=== PATIENT | male | born 1980 | race Hispanic/Latino ===

== ENCOUNTER 2018-11-28 01:01 | Inpatient (IN) | payer OTHER ==
[~2018-11-28] VITALS: Ht 188 cm; Wt 146.6 kg
[2018-11-28] VITALS (8 sets, daily range): BP systolic 105–125; BP diastolic 51–83
--- OUTSIDE RECORDS SUMMARY | 2018-11-28 01:03 | XMS REPORT | Continuity of Care Document ---
Author Author [facility] Organization Interface Address Unknown Phone Unavailable Problems Problem Status Onset Date Classification Date Reported Comments Source NECK ABSCESS Active 07/05/2018 [facility] ABSCESS OF EPIDIDYMIS OR TESTIS Active [facility] Medications Medication Details Route Status Patient Instructions Ordering Provider Order Date Source Allergies, Adverse Reactions, Alerts Substance Category Reaction Severity Reaction type Status Date Reported Comments Source Immunizations Immunization Date Given Site Status Last Updated Comments Source Results Order Name Results Value Reference Range Date Interpretation Comments Source Vital Signs Vital Sign Value Date Comments Source Encounters Location Location Details Encounter Type Encounter Number Reason For Visit Attending Provider ADM Date DC Date Status Source Outpatient [id number] YUDITH VALENZUELA 06/16/2017 Active [facility] Outpatient [id number] SAMMI RIOS 07/05/2018 Active [facility] Procedures Procedure Code Date Perfomer Comments Source
[2018-11-28] MEDS ORDERED: ONDANSETRON HCL INJ 2MG/ML 2ML 2 MG/ML VIAL IV STA (01:17)
[2018-11-28] MEDS ORDERED: MORPHINE SULFATE INJ 4 MG/ML INJ 1ML IV ONE (01:30)
[2018-11-28] MEDS ORDERED: SODIUM CHLORIDE 0.9% 1000ML 1,000 ML IV SCH ×3 (01:30→02:15)
[2018-11-28] MEDS ORDERED: CLINDAMYCIN PHOS 900MG/ 50ML 50 ML IV SCH (01:30)
[2018-11-28] MEDS ORDERED: ONDANSETRON HCL INJ 2MG/ML 2ML 2 MG/ML VIAL IV PRN ×2 (02:15→09:00)
[2018-11-28] MEDS ORDERED: MORPHINE SULFATE 2 MG/ML SYR 1ML IV PRN (02:15)
[2018-11-28] MEDS ORDERED: DEXTROSE 50% SYRINGE 50 ML IV PRN ×2 (02:15→09:00)
--- OUTSIDE RECORDS SUMMARY | 2018-11-28 02:22 | XMS REPORT | Encounter Summary ---
Author Organization Unknown Address [address] [place] [address] Phone [phone] Reason for Visit abscess/boil Instructions 1. Furunculosis of skin AND/OR subcutaneous tissue Bactrim DS 800 mg-160 mg tablet general surgery referral tramadol 50 mg tablet 2. Hypertensive disorder lisinopril 10 mg tablet 3. Type 2 diabetes mellitus metformin 1,000 mg tablet HbA1c (hemoglobin A1c), blood CMP, serum or plasma lipid panel, serum microalbumin:creatinine ratio, urine 4. Mixed hyperlipidemia 5. Body mass index 40+ - severely obese body mass index: care instructions learning about healthy weight Discussion Note: None recorded. Plan of Care Patient Instructions Prescriptions were sent to your pharmacy today, please call if any issues labs ordered today- results should be back within the the next 7 days- check the patient portal refer to surgeon Reminders Provider Appointments Est Patient on or around 02/25/2019 Deborah Reynolds MD Lab HbA1C (Hemoglobin a1C), Blood 11/25/2018 [facility] CMP, Serum or Plasma 11/25/2018 [facility] Lipid Panel, Serum 11/25/2018 [facility] Microalbumin:creatinine Ratio, Urine 11/25/2018 [facility] Referral General Surgery Referral 11/25/2018 Amilcar Kuhn MD Procedures None recorded. Surgeries None recorded. Imaging None recorded. Medications Name Start Date Bactrim DS 800 mg-160 mg tablet Take 1 tablet every 12 hours by oral route as directed for 10 days. Americoagldenia RussoPen U-100 Insulin 100 unit/mL (3 mL) subcutaneous ADMINISTER 40 UNITS UNDER THE SKIN TWICE DAILY DUE FOR APPT lisinopril 10 mg tablet Take 1 tablet every day by oral route. lisinopril 20 mg tablet Take 1 tablet every day by oral route. DUE FOR APPT 06/2018 metformin 1,000 mg tablet TAKE 1 TABLET BY MOUTH TWICE A DAY with food tramadol 50 mg tablet Take 1 tablet 3 times a day by oral route as needed. for severe pain Medications Administered None recorded. Vitals Height Weight BMI Blood Pressure 6 ft 2 in 130/84 mm[Hg] Lab Results None recorded. Allergies Code Code System Name Reaction Severity Status Onset NKDA Problems Name Status Onset Date Source Type 2 Diabetes Mellitus Active 12/15/2017 Hypertensive Disorder Active Procedures Date Name Performed by 09/08/2011 Circumcision W/regionl Block Information not available 09/08/1997 Other Information not available 09/08/1997 Hand Surgery Information not available Vaccine List Vaccine Type influenza, unspecified formulation 05/09/2015 Tdap 09/08/2011 Social History Smoking Status Never Smoker (1 PPW) Past Encounters 11/25/2018 Furunculosis of Skin AND/OR Subcutaneous Tissue; Hypertensive Disorder; Type 2 Diabetes Mellitus; Mixed Hyperlipidemia; Body Mass Index 40+ - Severely Obese Deborah Reynolds MD: [address] [place] [address], [address], [place] [address], Ph. History of Present Illness Note:37 yo male with HTN, hyperlipidemia and uncontrolled DM c/o boil in left buttock x 5 days , started draining a few days ago without improvement of pain, currently 10/10, steadily increasing size of affected area<div>(+) subjective fever/chills</div><div>DM- currently on basaglar 30 BID, also intermittently alternates with cambodian lantus</div><div> denies visual blurring, polydipsia/polyuria, hypoglycemic episodes, paresthesias, eye exam > 1 yr ago, </div><div>HTN- not taking any meds (previously on HOLLIE and diuretic)</div>< div>hyperlipidemia- not on statin</div> Review of Systems:ROS as noted in the HPI Review of Systems None recorded. Physical Exam Notes: General: well developed, well nourished, in no acute distress. obese , fatigued

Head: normocephalic and atraumatic.

Eyes: PERRL/EOM intact, conjunctiva and sclera clear with out nystagmus.

Ears: grossly normal hearing.

Nose: no deformity, discharge, inflammation, or lesions.

Mouth: no deformity or lesions with good dentition.

Neck: no masses, thyromegaly, or abnormal cervical nodes.

Chest Wall: no deformities or masses noted.

Lungs: clear bilaterally to auscultation. nonlabored respiratory effort, no wheeze, rales or rhonchi

Heart: chest non-tender; regular rate and rhythm, S1, S2 without murmurs, rubs, or gallops

Abdomen: soft, nontender, nondistended, no masses, no hernia, no rebound, normoactive bowel sounds

Msk: no deformity or scoliosis noted of thoracic or lumbar spine.

Pulses: pulses normal in all 4 extremities.

Extremities: no clubbing, cyanosis, edema, or deformity noted with normal full range of motion of all joints.

Neurologic: no focal deficits, cranial nerves II-XII grossly intact with normal sensation, reflexes, coordination, muscle strength and tone.

Skin: Right buttock near midline-- 7-8 cm area of induration, erythema, TTP, with central excoriation, no drainage, otherwise intact without lesions or rashes.

Lymph Nodes:no significant cervical, axillary or supraclavicular adenopathy.

Psych: alert and cooperative; normal mood and affect; normal attention span and concentration. No suicidal/homicidal ideations, no panic attacks
--- OUTSIDE RECORDS SUMMARY | 2018-11-28 02:22 | XMS REPORT ---
Author Organization Unknown Address [address] [place] [address] Phone [phone] Care Team Providers Care Tool And Production Planner Name Role Phone Maximiliano Beltre Unavailable Unavailable Allergies Code Code System Name Reaction Severity Status Onset NKDA Medications Name Status Start Date Stop Date atorvastatin 40 mg tablet Take 1 tablet every day by oral route as directed for 90 days. Completed 09/22/2017 Bactrim DS 800 mg-160 mg tablet Take 1 tablet every 12 hours by oral route as directed for 10 days. Completed 12/09/2017 ceftriaxone 1 gram solution for injection Take 1 g by injection route. Completed 12/09/2017 glipizide 5 mg tablet Take 1 tablet twice a day by oral route as directed for 30 days. Completed 12/09/2017 hydrochlorothiazide 25 mg tablet Take 1 tablet every day by oral route as directed for 90 days. Completed 12/09/2017 Jardiance 25 mg tablet Take 1 tablet every day by oral route as directed for 30 days. Completed 09/22/2017 Keflex 500 mg capsule Take 1 capsule every 8 hours by oral route as directed for 10 days. Completed 12/09/2017 ketorolac 60 mg/2 mL intramuscular solution Inject 2 mL as needed by intramuscular route. Completed 12/09/2017 Lantus Solostar U-100 Insulin 100 unit/mL (3 mL) subcutaneous pen Inject 25 units twice a day by subcutaneous route. Active Not available lisinopril 20 mg tablet Take 1 tablet every day by oral route. Active Not available metformin 1,000 mg tablet Take 1 tablet twice a day by oral route. Active Not available Problems Name Status Onset Date Source Type 1 Diabetes Mellitus Unknown Hypertensive Disorder Active Procedures Date Name Performed by 09/08/2011 Circumcision W/regionl Block Information not available 09/08/1997 Other Information not available 09/08/1997 Hand Surgery Notes: right Information not available 09/18/2017 , [facility] [address] [place] [address] (Work Place) 12/09/2017 CT, Brain, W/o Contrast [facility] ([facility]) [address] [facility] [address] [place] [address] (Work Place) Lab Results Date Name Specimen Result Interpretation Description Value Range Status Address 09/11/2017 CMP, Serum or Plasma High Alt 76 U/L 0-55 U/L Final [facility]: [address] [place] [address], [place] High Ast 45 U/L 5-34 U/L Final [facility]: [address] Bun 14.4 mg/dL 8.9-20.6 mg/dL Final [facility]: [address] Alk Phos 67 unit/L 40-150 unit/L Final [facility]: [address] High Glucose 322 mg/dL 70-99 mg/dL Final [facility]: [address] Albumin 3.9 g/dL 3.5-5.0 g/dL Final [facility]: [address] Creatinine 0.82 mg/dL 0.72-1.25 mg/dL Final [facility]: [address] eGFR Non- >60 mL/min/1.73m2 >60 mL/min/1.73m2 Final [facility]: [address] Total Bilirubin 1.2 mg/dL 0.2-1.2 mg/dL Final [facility]: [address] eGFR - >60 mL/min/1.73m2 >60 mL/min/1.73m2 Final [facility]: [address] Sodium 137 mEq/L 136-145 mEq/L Final [facility]: [address] Potassium 4.9 mEq/L 3.5-5.1 mEq/L Final [facility]: [address] Chloride 99 mmol/L 98-107 mmol/L Final [facility]: [address] High Total Protein 8.5 g/dL 6.4-8.3 g/dL Final [facility]: [address] Calcium 9.7 mg/dL 8.4-10.2 mg/dL Final [facility]: [address] Co2 26.4 mmol/L 22.0-29.0 mmol/L Final [facility]: [address] Anion Gap 12 calc Final [facility]: [address] 09/11/2017 Lipid Panel, Serum Low Hdl 30 mg/dL 40-60 mg/dL Final [facility]: [address] High Triglyceride 618 mg/dL 0-149 mg/dL Final [facility]: [address] VLDL Calc. 124 mg/dL Final [facility]: [address] cholesterol/HDL Ratio 7.0 mg/dL Final [facility]: [address] High non-HDL Cholesterol Calc. 180 mg/dL 0-160 mg/dL Final [facility]: [address] High Cholesterol 210 mg/dL 0-199 mg/dL Final [facility]: [address] Low LDL Calc. see comment mg/dL 0-130 mg/dL Final [facility]: [address] 09/11/2017 HbA1C (Hemoglobin a1C), Blood High A1C W/eag 10.8 % 1.0- 5.7 % Final [facility]: [address] Average Blood Glucose 263 mg/dL Final [facility]: [address] [address], [place] Albumin:creatinine Ratio, Urine Type Urine Microlalbumin 150 mg/L [facility]: [address] [place] [address] Type Urine Creatinine 200 mg/dL [facility] Type A:C Ratio >300 mg/g (High Abnormal) [facility] [address] [facility] Past Encounters 12/09/2017 Concussion Injury of Brain; Injury of Head; Hypertensive Disorder; Type II Diabetes Mellitus Uncontrolled; Body Mass Index 40+ - Severely Obese Deborah Reynolds MD: [address], [address] [address], Ph. 09/22/2017 Abscess; Type II Diabetes Mellitus Uncontrolled Maximiliano Kennedy MD: [address] [place] [address], Ph. 09/19/2017 Abscess; Mixed Hyperlipidemia Maximiliano Kennedy MD: [address] [facility], [address] [address], Ph. 09/18/2017 Type II Diabetes Mellitus Uncontrolled; Mixed Hyperlipidemia; Benign Essential Hypertension; Abscess; Elevated Liver Enzymes Level Maximiliano Kennedy MD: [address] [place] [address], Ph. 09/11/2017 Type 1 Diabetes Mellitus; Hypertensive Disorder; Electrocardiogram Abnormal; Microalbuminuria; Body Mass Index 40+ - Severely Obese Maximilianorebecca Kennedy MD: [address] [place] [address], Ph. Social History Smoking Status Former Smoker (1 PPW) Vaccine List Vaccine Type influenza, unspecified formulation 05/09/2015 Tdap 09/08/2011 Plan of Care Patient Instructions do CT head check labs tylenol 650mg 4x daily /motrin 600 3x daily with food for pain avoid contact sports x 4 wks Reminders Provider Appointments None recorded. Lab None recorded. Referral None recorded. Procedures None recorded. Surgeries None recorded. Imaging None recorded. Vitals 12/09/2017 01:30PM Est Patient Height Weight BMI Blood Pressure 6 ft 2 in 324 lbs 41.6 kg/m2 132/77 mm[Hg] 09/22/2017 10:30AM Est Patient Height Weight BMI Blood Pressure 6 ft 2 in 324 lbs 41.6 kg/m2 (1) 140/90 mm[Hg] (2) 132/96 mm[Hg] 09/19/2017 10:45AM Work In Same Day Height Weight BMI Blood Pressure 6 ft 2 in 325 lbs 41.7 kg/m2 (1) 159/109 mm[Hg] (2) 154/106 mm[Hg] 09/18/2017 11:15AM Est Patient Height Weight BMI Blood Pressure 6 ft 2 in 323 lbs 41.5 kg/m2 (1) 150/106 mm[Hg] (2) 140/96 mm[Hg] 09/11/2017 03:00PM New Patient Height Weight BMI Blood Pressure 6 ft 2 in 324 lbs 41.6 kg/m2 140/84 mm[Hg]
--- NOTE | 2018-11-28 02:53 | Diagnostic Imaging Report ---
EXAMINATION: CT of the pelvis with contrast. TECHNIQUE: Spiral CT images of the pelvis were performed from the iliac crests to the lesser trochanters after the intravenous administration of 100 cc of Isovue 370 and the oral administration of water. Coronal and sagittal reformatted images were obtained. COMPARISON: None. CLINICAL HISTORY:Abscess/boil in buttock DISCUSSION: PELVIS: PELVIC ORGANS/BLADDER: Bladder is unremarkable. No focal lesions. Prostate is unremarkable. PERITONEUM/RETROPERITONEUM: No free air or fluid. LYMPH NODES: Mild enlarged left inguinal lymph node, which measures 1.9 cm in short axis (series 2, image 73). No other inguinal or any distal retroperitoneal, or pelvic adenopathy VESSELS: Vessels are unremarkable. GI TRACT: The visualized bowel shows no dilation or obstruction. Appendix is well identified and normal in caliber. BONES AND SOFT TISSUE: No aggressive lytic lesions. There is an approximately 10.7 x 6.4 x 4.9 cm fluid and air collection with peripheral enhancement extending from the subcutaneous tissues of the left ischioanal fossa inferiorly to the left gluteal cleft (series 2, image 77 and sagittal image 78). The anterior aspect of this collection abuts the posterior aspect of the anal canal. Surrounding inflammatory fat stranding as well as skin thickening in the left gluteal cleft is noted. There is an additional 2.5 x 0.8 cm hypodense collection with rim enhancement and associated skin thickening and surrounding inflammatory changes in the subcutaneous tissues of the medial aspect of the right thigh (series 2, image 102). A focal area of skin thickening, subcutaneous inflammatory changes with several foci of air are noted in the opposite medial aspect of the left thigh (series 2, image 97), although no definite fluid collection is noted. Bilateral fat-containing inguinal hernias. IMPRESSION: 1. 10.7 cm abscess extending from the subcutaneous soft tissues of the inferior aspect of the left ischioanal fossa inferiorly to the left gluteal cleft. The anterior aspect of this collection abuts the posterior aspect of the renal canal. A fistulous tract is not visualized, however, may be the source of this infection. This may be further evaluated with dedicated contrast enhanced pelvic MRI with fistula protocol 2. Additional 2.5 cm abscess in the subcutaneous tissues of the medial aspect of the right thigh. Phlegmonous changes and skin thickening are noted in the opposite medial aspect of the left thigh, without discrete fluid collections. 3. Mildly enlarged left inguinal lymph node, likely reactive. Signed by: Dr. Eliel Lance M.D. on 11/28/2018 2:50 AM
[2018-11-28] MEDS: VANCOMYCIN 1GM/NS 250 ML 250 ML IV SCH (03:01)
[2018-11-28] MEDS ORDERED: LANTUS 3ML100 UNITS/ SC (04:47)
[2018-11-28] MEDS ORDERED: METFORMIN HCL500 MG PO (04:47)
[2018-11-28] MEDS ORDERED: LISINOPRIL10 MG PO (04:47)
[2018-11-28] MEDS: PIPER-TAZ 3.375 GM 50 ML IV SCH ×3 (06:00→18:03)
--- NOTE | 2018-11-28 07:10 | NUR ---
REPORT GIVEN TO ONCOMING NURSE.PT RESTING IN BED WITH NO S/S OF DISTRESS.
[2018-11-28] MEDS ORDERED: INSULIN REGULAR, HUMAN 100 UNIT/1 ML 3ML VIAL SQ SCH (07:30)
[2018-11-28] MEDS ORDERED: ACETAMINOPHEN 325 MG TAB PO PRN ×2 (09:00→11:00)
[2018-11-28] MEDS ORDERED: INSULIN GLARGINE U SC SCH (09:00)
[2018-11-28] MEDS: INSULIN GLARGINE 100 UNITS/ML VIAL SQ SCH ×2 (09:00→17:41)
[2018-11-28] MEDS ORDERED: HYDRALAZINE HCL 20 MG/ML VIAL IV PRN (09:00)
[2018-11-28] MEDS ORDERED: MORPHINE SULFATE INJ 4 MG/ML INJ 1ML IV PRN (09:15)
[2018-11-28 09:16] LABS: BASOPHILS # (AUTO) 0.1 (0.0-0.1); BASOPHILS % 0.3 % (0.0-1.0); EOSINOPHILS # (AUTO) 0.1 (0.0-0.4); EOSINOPHILS % 0.6 % (0.0-6.0); HEMATOCRIT 41.5 % (38.2-49.6); HEMOGLOBIN 13.9 g/dL (14.0-18.0); LYMPHOCYTES # (AUTO) 2.9 (1.0-3.2); LYMPHOCYTES % 16.5 % (18.0-39.1); MEAN CORPUSCULAR HEMOGLOBIN 26.9 pg (28-32); MEAN CORPUSCULAR HGB CONC 33.5 g/dL (31-35); MEAN CORPUSCULAR VOLUME 80.3 fL (81-99); MONOCYTES # (AUTO) 1.2 (0.2-0.8); MONOCYTES % 7.1 % (4.4-11.3); NEUTROPHILS # (AUTO) 12.9 (2.1-6.9); NEUTROPHILS % 74.6 % (38.7-80.0); PLATELET COUNT 334 x10e3/uL (140-360); RED BLOOD COUNT 5.17 x10e6/uL (4.3-5.7); RED CELL DISTRIBUTION WIDTH 13.2 % (11.7-14.4)
[2018-11-28 09:24] LABS: ANION GAP 15.5 mmol/L (8-16); BLOOD UREA NITROGEN 9 mg/dL (7-26); BUN/CREATININE RATIO 13 (6-25); CALCIUM 8.8 mg/dL (8.4-10.2); CARBON DIOXIDE 18 mmol/L (22-29); CHLORIDE 103 mmol/L (98-107); CREATININE, SERUM 0.69 mg/dL (0.72-1.25); EST GLOMERULAR FILTRATION RATE > 60 ML/MIN (60-); GLUCOSE 116 mg/dL (74-118); POTASSIUM 3.5 mmol/L (3.5-5.1); SODIUM 133 mmol/L (136-145)
[2018-11-28] MEDS: PANTOPRAZOLE 40 MG 10ML VIAL IV SCH (09:28)
[2018-11-28 09:46] LABS: FREE T4 (FREE THYROXINE) 1.09 ng/dL (0.9-1.8); THYROID STIMULATING HORMONE 2.964 uIU/mL (0.350-4.940)
[2018-11-28 09:48] LABS: B-TYPE NATRIURETIC PEPTIDE2 256.3 pg/mL (0-100)
[2018-11-28 09:58] LABS: MAGNESIUM 1.2 MG/DL (1.3-2.1)
--- NOTE | 2018-11-28 10:22 | NUR ---
Patient off unit to OR.
[2018-11-28] MEDS ORDERED: HYDROMORPHONE 1MG/1ML INJ IV PRN (11:00)
[2018-11-28] MEDS: INSULIN LISPRO 100 UNIT/1 ML 3ML VIAL SQ SCH ×3 (11:30→21:00)
--- NOTE | 2018-11-28 12:37 | Consultation ---
DATE OF CONSULTATION: 11/28/2018 Consultation HISTORY OF PRESENT ILLNESS: The patient is a 37-year-old male with history of diabetes, presents with complaints of pain and swelling in his left buttock area, he has had for little more than a week. It is small and gradually increased in size. Now, he has drainage, also some pain in the right thigh. Evaluation of CT scan of the pelvis revealed abscess in the left buttock and a small abscess in the right thigh. The patient has not had any fever. PAST MEDICAL HISTORY: Significant for hypertension and diabetes. MEDICATIONS: His medications at home are insulin, lisinopril, and metformin. PAST SURGICAL HISTORY: Only previous surgery was for injury to his arm. ALLERGIES: HE HAS NO KNOWN ALLERGIES. FAMILY HISTORY: Noncontributory. SOCIAL HISTORY: The patient does not smoke cigarettes or drink alcohol. REVIEW OF SYSTEMS: As stated above. He has not had any fever. No weight loss. PHYSICAL EXAMINATION: GENERAL: The patient is awake and alert, in no distress. VITAL SIGNS: Slight tachycardia, heart rate 109. He is afebrile. HEENT: No scleral icterus. NECK: Has no masses. LUNGS: Equal breath sounds and clear bilaterally. CARDIAC: Regular rate and rhythm. Normal S1 and S2 without murmur, S3, or S4. ABDOMEN: Soft. There is no tenderness. No mass. EXTREMITIES: In the left buttock area, there is induration and erythema with open area of purulent drainage and in the right medial thigh, there is a second area with induration with a small amount of purulent drainage. Peripheral pulses are palpable. NEUROLOGIC: Grossly intact. LAB TESTS: White blood cell count is 19,000, hemoglobin 15, and hematocrit 44. Chemistries, bicarbonate level is low at 18. ASSESSMENT: A 37-year-old male with abscess of left buttock and right thigh. PLAN: Incision and drainage of the abscess to be done today. Procedure was explained to the patient including risks, benefits, and alternatives. He understands. He has had the opportunity to ask questions. Thank you for asking me to see Mr. Baker. MD AUDREY Padilla/TALIA /[id number]
--- NOTE | 2018-11-28 14:00 | NUR ---
Patient up and ambulating to bathroom and back without any complaints. Post op dressing intact. Patient requesting diet to be changed to clear liquids. call morrissey within reach.
[2018-11-28] MEDS: SODIUM CHLORIDE 0.9% 1000ML 1,000 ML IV SCH ×3 (14:33→22:15)
[2018-11-28] MEDS ORDERED: FENTANYL CITRATE/PF 100MCG/2 ML INJ ONE (15:23)
[2018-11-28] MEDS ORDERED: LIDOCAINE HCL 2% LOCAL INJ 5 ML SDV VIAL INJ ONE (15:47)
[2018-11-28] MEDS ORDERED: ACETAMINOPHEN 1000 MG/100 ML IV ONE (15:47)
[2018-11-28] MEDS ORDERED: DESFLURANE 240 ML BTL INH ONE (15:47)
[2018-11-28] MEDS ORDERED: ONDANSETRON HCL INJ 2MG/ML 2ML 2 MG/ML VIAL ONE (15:47)
[2018-11-28] MEDS ORDERED: PROPOFOL IV EMULSION 10 MG/ML 20 ML VIAL ONE (15:47)
[2018-11-28] MEDS: FAMOTIDINE 20 MG TAB PO SCH (16:30)
[2018-11-28] MEDS: DOCUSATE SODIUM 100 MG CAP PO SCH (17:39)
[2018-11-28] MEDS: HYDROCODONE/APAP 7.5MG-325MG 1 EA TAB PO PRN (18:04)
--- NOTE | 2018-11-28 18:18 | Operative Report ---
DATE OF PROCEDURE: 11/28/2018 SURGEON: Dawson Navarro MD PREOPERATIVE DIAGNOSES: 1. Abscess of left buttock. 2. Abscess of right medial thigh. POSTOPERATIVE DIAGNOSES: 1. Complex abscess of left buttock. 2. Abscess of right medial thigh. PROCEDURES: 1. Incision and drainage of complex abscess, left buttock. 2. Incision and drainage of abscess, right medial thigh. COMPUTER GAME PROGRAMMER: None. ANESTHESIA: General. INDICATIONS AND FINDINGS: The patient is a 37-year-old male with history of diabetes, presented with swelling in the left buttock and right medial thigh and there was drainage noted. Workup revealed abscesses in each area. Surgery, there was a large abscess in the left buttock containing approximately 40 mL of purulent fluid. This tracks superior and inferior a large cavity. There is some devitalized skin and subcutaneous tissue, which was excised. In the right medial thigh, there was a second abscess containing approximately 3 mL of purulent fluid, which was drained with no necrotic tissue seen. TECHNIQUE: After adequate general anesthesia with the patient in right side down position, the left buttock and right medial thigh were prepped and draped in a sterile fashion with Betadine solution. There was some devitalized skin where there was purulent drainage in the left buttock. This was excised and abscess cavity was entered. About 40 mL of purulent fluid was drained. Sample taken for culture and sensitivity, this was somewhat hemorrhagic. There was some devitalized skin which was excised as well as subcutaneous tissue which was excised. Hemostasis achieved with electrocautery. The wound was irrigated with saline. In the medial thigh, there was a sinus tract with purulent drainage. Incision was made through this area and abscess cavity was entered. About 3 mL of purulent fluid was drained and this was drained completely. Hemostasis achieved with electrocautery. Each abscess cavity was irrigated with saline. The thigh abscess was dressed with packed open half-inch iodoform gauze and sterile dressing and the left buttock abscess was packed with saline moistened Kerlix and a sterile dressing applied. The patient tolerated the entire procedure well. Estimated blood loss was 40 mL. There were no complications. All counts were correct. The patient was taken to the recovery room in satisfactory condition. MD AUDREY Padilla/ELLAL /[id number] cc: Tom Abdalla MD
[2018-11-28] MEDS ORDERED: LISINOPRIL 10 MG TAB PO SCH (21:00)
[2018-11-28] MEDS: LISINOPRIL 20 MG TAB PO SCH (21:58)
[2018-11-29] VITALS (7 sets, daily range): BP systolic 117–134; BP diastolic 65–87
[2018-11-29] MEDS: VANCOMYCIN 1GM/NS 250 ML 250 ML IV SCH (02:35)
[2018-11-29] MEDS: ONDANSETRON HCL INJ 2MG/ML 2ML 2 MG/ML VIAL IV PRN ×2 (03:07→09:50)
[2018-11-29 03:26] LABS: BASOPHILS # (AUTO) 0.1 (0.0-0.1); BASOPHILS % 0.5 % (0.0-1.0); EOSINOPHILS # (AUTO) 0.2 (0.0-0.4); EOSINOPHILS % 1.6 % (0.0-6.0); HEMATOCRIT 37.5 % (38.2-49.6); HEMOGLOBIN 12.4 g/dL (14.0-18.0); LYMPHOCYTES % 27.5 % (18.0-39.1); MEAN CORPUSCULAR HGB CONC 33.1 g/dL (31-35); MEAN CORPUSCULAR VOLUME 81.7 fL (81-99); MONOCYTES # (AUTO) 0.9 (0.2-0.8); MONOCYTES % 8.4 % (4.4-11.3); NEUTROPHILS # (AUTO) 6.6 (2.1-6.9); NEUTROPHILS % 60.4 % (38.7-80.0); PLATELET COUNT 317 x10e3/uL (140-360); RED BLOOD COUNT 4.59 x10e6/uL (4.3-5.7); RED CELL DISTRIBUTION WIDTH 13.2 % (11.7-14.4)
[2018-11-29 03:35] LABS: INR 1.01; PROTHROMBIN TIME 13.8 seconds (11.9-14.5)
[2018-11-29 03:36] LABS: PARTIAL THROMBOPLASTIN TIME 43.9 seconds (23.8-35.5)
[2018-11-29 03:41] LABS: ANION GAP 12.5 mmol/L (8-16); BLOOD UREA NITROGEN 7 mg/dL (7-26); BUN/CREATININE RATIO 10 (6-25); CALCIUM 8.4 mg/dL (8.4-10.2); CARBON DIOXIDE 21 mmol/L (22-29); CHLORIDE 106 mmol/L (98-107); CREATININE, SERUM 0.72 mg/dL (0.72-1.25); EST GLOMERULAR FILTRATION RATE > 60 ML/MIN (60-); GLUCOSE 145 mg/dL (74-118); MAGNESIUM 1.2 MG/DL (1.3-2.1); POTASSIUM 3.5 mmol/L (3.5-5.1); SODIUM 136 mmol/L (136-145)
[2018-11-29] MEDS: PIPER-TAZ 3.375 GM 50 ML IV SCH ×2 (06:00)
[2018-11-29] MEDS: SODIUM CHLORIDE 0.9% 1000ML 1,000 ML IV SCH ×2 (06:18→17:39)
--- NOTE | 2018-11-29 07:21 | NUR ---
REPORT GIVEN TO ONCOMING NURSE.PT RESTING IN BED WITH NO S/S OF DISTRESS.
[2018-11-29] MEDS: INSULIN LISPRO 100 UNIT/1 ML 3ML VIAL SQ SCH ×4 (07:30→21:00)
[2018-11-29] MEDS ORDERED: MAGNESIUM SULF 1GRAM/DEXTROSE 100 ML IV ONE ×2 (07:45→12:00)
[2018-11-29] MEDS: FAMOTIDINE 20 MG TAB PO SCH ×2 (09:45→17:37)
[2018-11-29] MEDS: PANTOPRAZOLE 40 MG 10ML VIAL IV SCH (09:46)
[2018-11-29] MEDS: DOCUSATE SODIUM 100 MG CAP PO SCH ×2 (09:46→17:39)
[2018-11-29] MEDS: HYDROMORPHONE 2MG/ML 2 MG/ML ML IV PRN (09:49)
[2018-11-29] MEDS: INSULIN GLARGINE 100 UNITS/ML VIAL SQ SCH ×2 (09:49→17:40)
[2018-11-29] MEDS: CIPROFLOXACIN 400 MG/D5W 200ML 200 ML IV SCH (13:15)
--- NOTE | 2018-11-29 18:38 | Consultation ---
DATE OF CONSULTATION: Infectious Disease Consult Note This consultation was done on behalf of Dr. Finn. REASON FOR CONSULTATION: Left gluteal abscess status post I and D, evaluation, and antibiotic recommendation, reason for admission and fever, uncontrolled blood sugars and left gluteal boil. HISTORY OF PRESENT ILLNESS: The patient is a 37-year-old very pleasant gentleman with past medical history significant for type 2 diabetes mellitus, hypertension and obesity, presented to [facility] on 11/28/2018 with one week history of left gluteal area boil, fever, chills, and uncontrolled blood sugars. The patient reports he noticed a small pustule, which has gradually increased in size and he also had some area of small abscess in the right thigh as well. He underwent CT of the abdomen and pelvis, which showed abscess in the left gluteal and some abscess in the right thigh. The patient was seen by general surgeon and underwent incision and drainage yesterday. He has been getting vancomycin and Zosyn. Infectious Disease consulted today. At the time of my consultation, the patient is lying in bed, reports the pain is 5/10, throbbing in nature, worsening on lying on his gluteal area. PAST MEDICAL HISTORY: Recurrent boils, diabetes mellitus type 2, and hypertension. PAST SURGICAL HISTORY: Injury to his arm surgery. ALLERGIES: NO KNOWN DRUG ALLERGIES. MEDICATIONS: The patient was not taking any oral or IV antibiotics as an outpatient. As an inpatient, on vancomycin and Zosyn for last 48 hours. SOCIAL HISTORY: The patient has no tobacco or alcohol use. FAMILY HISTORY: Noncontributory. REVIEW OF SYSTEMS: A 10-point review of systems obtained except as mentioned in HPI, rest of them are negative. PHYSICAL EXAMINATION: GENERAL: The patient is well built, well nourished, moderately obese, very pleasant young gentleman. VITAL SIGNS: T-max of 96.3, heart rate 94, respiratory rate 20, blood pressure 110/60. HEENT: Head, atraumatic and normocephalic. Face is symmetrical. Conjunctiva is nonicteric. LUNGS: Clear to auscultation. Chest wall, multiple tattoos. ABDOMEN: Good bowel sounds. Left gluteal area, surgical dressing in place, packed with guaze and minimal amount of drainage is noted. LABORATORY DATA: WBC of 17,000 on admission, decreased to 10,000 today. Hemoglobin 12.4, hematocrit 37, and platelets of 317. Sodium 136, potassium 2.5, chloride 106, bicarb 21, BUN of 7, creatinine of 0.7. Hemoglobin A1c is 10.6. Preliminary wound cultures are showing rare gram-negative bacilli, moderate gram-positive cocci in pairs. ASSESSMENT AND PLAN: A 37-year-old very pleasant gentleman with diabetes mellitus type 2 and obesity, admitted to [facility] with left gluteal abscess, fever, leukocytosis, underwent incision and drainage. Most common pathogen is Staph aureus, cannot rule out MRSA, MSSA as well as group B beta-hemolytic Streptococcus. Recommend to discontinue Zosyn, continue vancomycin 2 g IV q.12 hours. Start Cipro 400 IV q.12 hours for gram negative coverage empirically. Follow culture results. Based on it, we will change antibiotics accordingly. MD ESTEPHANIA Ortiz/TALIA /[id number]
[2018-11-29] MEDS ORDERED: VANCOMYCIN HCL 2 GM in SODIUM CHLORIDE 0.9% 500ML 400 ML IV SCH (21:00)
[2018-11-29] MEDS: LISINOPRIL 20 MG TAB PO SCH (22:39)
[2018-11-29] MEDS ORDERED: SODIUM CHLORIDE 0.9% 500ML 0 ML ONE (22:46)
[2018-11-29] MEDS ORDERED: VANCOMYCIN 1GM/NS 250 ML 500 ML ONE (22:48)
[2018-11-30] VITALS (8 sets, daily range): BP systolic 119–142; BP diastolic 73–94
--- NOTE | 2018-11-30 00:20 | NUR ---
Patient received lying in bed. No complaints of pain. Respirations even and unlabored. Fall precautions implemented. Patient instructed to call for assistance when needed. Call light within reach.
[2018-11-30] MEDS: CIPROFLOXACIN 400 MG/D5W 200ML 200 ML IV SCH ×2 (01:00→12:47)
[2018-11-30] MEDS: SODIUM CHLORIDE 0.9% 1000ML 1,000 ML IV SCH ×2 (02:56→08:35)
[2018-11-30 06:10] LABS: BASOPHILS # (AUTO) 0.1 (0.0-0.1); BASOPHILS % 0.6 % (0.0-1.0); EOSINOPHILS # (AUTO) 0.2 (0.0-0.4); EOSINOPHILS % 1.8 % (0.0-6.0); HEMATOCRIT 40.3 % (38.2-49.6); HEMOGLOBIN 12.9 g/dL (14.0-18.0); LYMPHOCYTES # (AUTO) 2.8 (1.0-3.2); LYMPHOCYTES % 27.7 % (18.0-39.1); MEAN CORPUSCULAR HEMOGLOBIN 26.8 pg (28-32); MEAN CORPUSCULAR VOLUME 83.6 fL (81-99); MONOCYTES # (AUTO) 0.8 (0.2-0.8); MONOCYTES % 8.1 % (4.4-11.3); NEUTROPHILS % 59.6 % (38.7-80.0); PLATELET COUNT 329 x10e3/uL (140-360); RED BLOOD COUNT 4.82 x10e6/uL (4.3-5.7); RED CELL DISTRIBUTION WIDTH 13.2 % (11.7-14.4)
[2018-11-30 06:52] LABS: ANION GAP 10.5 mmol/L (8-16); BLOOD UREA NITROGEN 5 mg/dL (7-26); BUN/CREATININE RATIO 8 (6-25); CALCIUM 8.2 mg/dL (8.4-10.2); CARBON DIOXIDE 26 mmol/L (22-29); CHLORIDE 104 mmol/L (98-107); CREATININE, SERUM 0.64 mg/dL (0.72-1.25); EST GLOMERULAR FILTRATION RATE > 60 ML/MIN (60-); GLUCOSE 158 mg/dL (74-118); MAGNESIUM 1.3 MG/DL (1.3-2.1); POTASSIUM 3.5 mmol/L (3.5-5.1); SODIUM 137 mmol/L (136-145)
[2018-11-30 07:56] LABS: EOSINOPHILS % (MANUAL) 1 % (0-7); LYMPHOCYTES % (MANUAL) 36 % (19-48); MONOCYTES % (MANUAL) 5 % (3.4-9.0); NEUTROPHILS % (MANUAL) 56 % (40-74)
[2018-11-30 07:59] LABS: PLATELET ESTIMATE ADEQUATE; PLATELET MORPHOLOGY COMMENT NORMAL; RBC MORPHOLOGY COMMENT NORMAL
[2018-11-30] MEDS: PANTOPRAZOLE 40 MG 10ML VIAL IV SCH (08:35)
[2018-11-30] MEDS: ONDANSETRON HCL INJ 2MG/ML 2ML 2 MG/ML VIAL IV PRN (08:35)
[2018-11-30] MEDS: FAMOTIDINE 20 MG TAB PO SCH ×2 (08:35→17:11)
[2018-11-30] MEDS: DOCUSATE SODIUM 100 MG CAP PO SCH ×2 (08:35→17:12)
[2018-11-30] MEDS: HYDROMORPHONE 2MG/ML 2 MG/ML ML IV PRN (08:35)
[2018-11-30] MEDS: INSULIN LISPRO 100 UNIT/1 ML 3ML VIAL SQ SCH ×4 (08:50→21:38)
[2018-11-30] MEDS ORDERED: FUROSEMIDE INJ 10 MG/ML 4 ML VIAL IV ONE (09:30)
[2018-11-30] MEDS: INSULIN GLARGINE 100 UNITS/ML VIAL SQ SCH ×2 (10:00→17:56)
--- NOTE | 2018-11-30 10:23 | NUR ---
WOUND CARE NURSE CONSULTATION. 37 YEAR OLD MALE ADMITTED TO [facility] WITH DX OF CELLULITIS AND ABSCESS TO RIGHT BUTTOCK AND RIGHT MEDIAL THIGH. S/P 2 DAYS I&D PER DR. FITZPATRICK. SURGICAL DRESSING DRY AND INTACT. THERE ARE NO OTHER AREAS OF CONCERN NOTED AT THIS TIME. ORDERS TO REINFORCE DRESSING PRN IN CHART. WILL CONTINUE TO FOLLOW UP WITH PT AFTER SURGICAL DRESSING IS REMOVED BY MD. LABS: WBC: 10.12 GLUCOSE: 153 HGBA1C: 10.6 WOUND AND BLOOD CX PENDING AT THIS TIME. THANKS FOR THIS CONSULTATION. Addendum: 11/30/18 at 1028 by Joya Richardson RN Amended: Links added.
[2018-11-30] MEDS: VANCOMYCIN HCL 2 GM in SODIUM CHLORIDE 0.9% 500ML 500 ML IV SCH ×2 (11:21→20:38)
[2018-11-30] MEDS: MAGNESIUM OXIDE 400 MG TAB PO SCH (17:12)
[2018-11-30] MEDS: ZINC SULFATE 220 MG CAP PO SCH (17:12)
[2018-11-30] MEDS: ASCORBIC ACID 500 MG TAB PO SCH (17:12)
[2018-11-30] MEDS: OYST-CAL-D 500MG TABLET PO SCH (17:12)
[2018-11-30] MEDS: LISINOPRIL 20 MG TAB PO SCH ×2 (20:38→21:38)
[2018-12-01] VITALS (8 sets, daily range): BP systolic 136–162; BP diastolic 82–98
[2018-12-01] MEDS: SODIUM CHLORIDE 0.9% 1000ML 1,000 ML IV SCH ×3 (00:35→18:56)
[2018-12-01] MEDS: CIPROFLOXACIN 400 MG/D5W 200ML 200 ML IV SCH ×2 (01:31→13:42)
[2018-12-01] MEDS: HYDROMORPHONE 2MG/ML 2 MG/ML ML IV PRN (02:06)
[2018-12-01 05:51] LABS: BASOPHILS # (AUTO) 0.1 (0.0-0.1); BASOPHILS % 0.5 % (0.0-1.0); EOSINOPHILS # (AUTO) 0.2 (0.0-0.4); EOSINOPHILS % 1.6 % (0.0-6.0); HEMATOCRIT 38.8 % (38.2-49.6); HEMOGLOBIN 12.5 g/dL (14.0-18.0); LYMPHOCYTES # (AUTO) 3.1 (1.0-3.2); LYMPHOCYTES % 28.7 % (18.0-39.1); MEAN CORPUSCULAR HEMOGLOBIN 26.7 pg (28-32); MEAN CORPUSCULAR HGB CONC 32.2 g/dL (31-35); MEAN CORPUSCULAR VOLUME 82.7 fL (81-99); MONOCYTES # (AUTO) 0.8 (0.2-0.8); MONOCYTES % 7.3 % (4.4-11.3); NEUTROPHILS # (AUTO) 6.6 (2.1-6.9); NEUTROPHILS % 60.3 % (38.7-80.0); PLATELET COUNT 346 x10e3/uL (140-360); RED BLOOD COUNT 4.69 x10e6/uL (4.3-5.7)
[2018-12-01 06:17] LABS: ANION GAP 9.3 mmol/L (8-16); BLOOD UREA NITROGEN 8 mg/dL (7-26); BUN/CREATININE RATIO 11 (6-25); CALCIUM 8.5 mg/dL (8.4-10.2); CARBON DIOXIDE 30 mmol/L (22-29); CHLORIDE 98 mmol/L (98-107); CREATININE, SERUM 0.73 mg/dL (0.72-1.25); EST GLOMERULAR FILTRATION RATE > 60 ML/MIN (60-); GLUCOSE 126 mg/dL (74-118); POTASSIUM 3.3 mmol/L (3.5-5.1); SODIUM 134 mmol/L (136-145)
[2018-12-01] MEDS: INSULIN LISPRO 100 UNIT/1 ML 3ML VIAL SQ SCH ×4 (07:30→22:09)
[2018-12-01] MEDS: OYST-CAL-D 500MG TABLET PO SCH ×2 (09:02→18:22)
[2018-12-01] MEDS: DOCUSATE SODIUM 100 MG CAP PO SCH ×2 (09:02→18:22)
[2018-12-01] MEDS: MULTIVITAMINS/MINERALS TAB PO SCH (09:02)
[2018-12-01] MEDS: MAGNESIUM OXIDE 400 MG TAB PO SCH ×2 (09:02→18:22)
[2018-12-01] MEDS: FAMOTIDINE 20 MG TAB PO SCH ×2 (09:02→18:22)
[2018-12-01] MEDS: PANTOPRAZOLE 40 MG 10ML VIAL IV SCH (09:02)
[2018-12-01] MEDS: ASCORBIC ACID 500 MG TAB PO SCH ×2 (09:02→18:22)
[2018-12-01] MEDS: ZINC SULFATE 220 MG CAP PO SCH ×2 (09:02→18:22)
[2018-12-01] MEDS ORDERED: POTASSIUM CHLORIDE 20 MEQ TAB CR PO STA (09:32)
[2018-12-01] MEDS ORDERED: ZINC SULFATE220 M1 PO (09:38)
[2018-12-01] MEDS ORDERED: Calcium Carbonate PO (09:38)
[2018-12-01] MEDS ORDERED: MAGNESIUM OXID400 MG PO (09:38)
[2018-12-01] MEDS ORDERED: Multivitamins/Minerals PO (09:38)
[2018-12-01] MEDS ORDERED: ASCORBIC ACID500 MG PO (09:38)
[2018-12-01] MEDS: VANCOMYCIN HCL 2 GM in SODIUM CHLORIDE 0.9% 500ML 500 ML IV SCH ×2 (09:46→22:15)
[2018-12-01] MEDS: INSULIN GLARGINE 100 UNITS/ML VIAL SQ SCH ×2 (09:51→18:24)
[2018-12-01] MEDS ORDERED: ACETAMINOPHEN 325 MG TAB PO PRN (10:00)
--- NOTE | 2018-12-01 13:31 | NUR ---
ORDERS FOR HOME HEALTH FOR DRESSING CHANGES [facility] TAKES [facility] INSURANCE PER RADHA [phone] FAX [phone] CHOICE LETTER SIGNED BY PT COPY TO PT VERIFIED ADDRESS AND PHONE NUMBER CORRECT FAXED CLINICAL; CONFIRMATION REC'D
--- NOTE | 2018-12-01 15:39 | NUR ---
SOCIAL WORK INITIAL ASSESSMENT Herpetologist to bedside to discuss plan of care with patient/family. CM/SW role and care transitions discussed. Anticipated discharge plan discussed along with duration of care. CM/SW discussed patients right to make decisions in care. CM/SW work hours given. Patient lives: IN 2 STORY HOUSE WITH GIRLFRIEND AND 2 CHILDREN Admit/Transfer: VIA ED FROM HOME POA/Emergency contact: ANTHONY GOODWIN [phone] Current/Previous Home Health: NONE PCP/Follow-up Care: G[facility]Y Current/Previous DME: NONE Other Services: NONE Employment Status: [employer] Areas of Concerns: NONE Referral Needs: HOME HEALTH Education Needs: NONE IMM/JACQUES given and signed (if applicable): NA Goal for discharge: RETURN HOME CM/SW left business card at the bedside with contact information. Name and number was also written on the patients whiteboard. Patient verbalized understanding of discussion. CM will follow-up with ongoing discharge and transition of care needs.
--- NOTE | 2018-12-01 17:05 | NUR ---
CM REC'D CALL FROM RADHA AT [facility] [employer] STATING THEY ARE NOT IN NETWORK WITH [facility] PPO INS CM CALLED AND SPOKE WITH BALTAZAR AT [facility] PH [phone] FAX [phone] SHE STATES THEY ARE IN NETWORK WITH [facility] FAXED CLINICAL AND CONFIRMATION REC'D CALLED PT AT HOME BUT UNABLE TO LEAVE VOICE MAIL CALLED PT'S GIRLFRIEND CHRISTA CHURCH AT [phone] AND LEFT GIVING HER NAME AND NUMBER OF [facility] [employer]
--- NOTE | 2018-12-01 19:30 | NUR ---
Received report from previous nurse. Patient A&Ox3. No pain or distress noted. Call light within reach.
--- NOTE | 2018-12-01 20:04 | Progress Note ---
DATE: SUBJECTIVE: Mr. Baker is doing better. There are no new complaints. He would like to go home. REVIEW OF SYSTEMS: HEENT: Negative. PULMONARY: Negative. CARDIAC: Negative. : Negative. GI: Negative. SKIN: There is no rash. JOINTS: No erythema or edema. PHYSICAL EXAMINATION: GENERAL: He is currently alert, oriented, does not seem to be in acute distress. VITAL SIGNS: Stable. Afebrile. HEENT: Normocephalic. He does not appear icteric. NECK: Supple. No JVD. No lymphadenopathy. No thyromegaly. CHEST: Clear bilaterally. ABDOMEN: The patient is obese. : He does have left buttock wound. Drainage is minimum. IMPRESSION AND PLAN: Abscess of the left buttock, status post incision and drainage in the patient with obesity, debility, and diabetes mellitus, doing better, can be discharged home with oral doxycycline and Cipro. Discussed with the patient so far his cultures are negative. His white count came down to 10.9, hemoglobin 12.5, creatinine 0.73. The Gram stain shows gram- positive cocci, gram-positive rods, gram-negative bacilli. List of prescriptions recorded in the chart, stable from Infectious Disease, we will discharge home. MD KIM Ordaz/TALIA /[id number]
[2018-12-01] MEDS: LISINOPRIL 20 MG TAB PO SCH (22:10)
[2018-12-02] VITALS: BP 129/80
[2018-12-02] MEDS: HYDROCODONE/APAP 7.5MG-325MG 1 EA TAB PO PRN (00:31)
[2018-12-02] MEDS: CIPROFLOXACIN 400 MG/D5W 200ML 200 ML IV SCH ×2 (01:49→12:45)
--- NOTE | 2018-12-02 03:31 | Discharge Summary ---
ADMISSION DIAGNOSES: Left buttocks cellulitis/abscess, right thigh cellulitis/abscess, hypertension, type 2 diabetes, and morbid obesity. DISCHARGE DIAGNOSES: Left buttocks cellulitis/abscess, right thigh cellulitis/abscess, hypertension, type 2 diabetes, and morbid obesity. MEDICAL HISTORY: Type 2 diabetes and hypertension. SURGICAL HISTORY: Right hand surgery and multiple I and Ds. FAMILY HISTORY: The patient's mom has diabetes. The patient's grandfather had cancer. SOCIAL HISTORY: The patient admits to occasional weed smoking. HOSPITAL COURSE: A 37-year-old male complains of feeling uncomfortable on , but Friday, he noticed intermittent aching of the left buttock and right thigh. By Friday, the pain had become constant and sharp. On Friday, he began noticing a maroon drainage and had a fever of 100 by . He complains of chills since Friday. On admission, the patient was started on vancomycin, Zosyn, and clindamycin per ER doctor. CT of the pelvis showed a 10.7 cm abscess on the left gluteal cleft and a 2.5 cm abscess in the tissue of the medial aspect of the right thigh. On 11/28, the patient had an I and D of the left buttock and the right medial thigh. Following surgery, the wound was packed for about 2 days. Wound culture came back negative. Blood cultures were also negative. Per Infectious Disease, the patient was switched to Cipro and doxycycline by mouth for 2 weeks. He will be discharged home with antibiotics plus vitamins for wound healing. He will follow up with primary care in 1-[address] Navarro as discussed. The patient was set up with home health for wound care. The patient understands discharge instructions and agrees to plan. Vital signs stable, patient afebrile. Dictated by aLverne Love NP MD CHUY Mercado/TALIA /[id number]
[2018-12-02 04:00] VITALS: BP 136/82
[2018-12-02] MEDS: SODIUM CHLORIDE 0.9% 1000ML 1,000 ML IV SCH (04:56)
--- NOTE | 2018-12-02 07:10 | NUR ---
Gave report to oncoming nurse. NO pain or distress noted. Call light within reach.
[2018-12-02] MEDS: INSULIN LISPRO 100 UNIT/1 ML 3ML VIAL SQ SCH ×2 (07:30→11:30)
[2018-12-02 07:45] VITALS: BP 139/93
--- NOTE | 2018-12-02 08:12 | NUR ---
lab called with vancomycin trough of 10.6, notified Dr. Finn, per MD ramos to give next dose.
[2018-12-02] MEDS: FAMOTIDINE 20 MG TAB PO SCH (08:25)
[2018-12-02] MEDS: MAGNESIUM OXIDE 400 MG TAB PO SCH (08:25)
[2018-12-02] MEDS: VANCOMYCIN HCL 2 GM in SODIUM CHLORIDE 0.9% 500ML 500 ML IV SCH (08:25)
[2018-12-02] MEDS: DOCUSATE SODIUM 100 MG CAP PO SCH (08:25)
[2018-12-02] MEDS: ASCORBIC ACID 500 MG TAB PO SCH (08:25)
[2018-12-02] MEDS: OYST-CAL-D 500MG TABLET PO SCH (08:25)
[2018-12-02] MEDS: PANTOPRAZOLE 40 MG 10ML VIAL IV SCH (08:25)
[2018-12-02] MEDS: ZINC SULFATE 220 MG CAP PO SCH (08:25)
[2018-12-02] MEDS: MULTIVITAMINS/MINERALS TAB PO SCH (08:25)
[2018-12-02 08:27] VITALS: BP 139/93
[2018-12-02] MEDS: INSULIN GLARGINE 100 UNITS/ML VIAL SQ SCH (08:35)
[2018-12-02] MEDS ORDERED: DOXYCYCLINE HY100 MG PO (09:40)
[2018-12-02] MEDS ORDERED: CIPRO500 MG PO (09:40)
[2018-12-02 12:34] VITALS: BP 150/90
--- NOTE | 2018-12-02 13:07 | NUR ---
patient alert and oriented. Discharge instructions given to patient at this time, patient verbalized understanding. IV discontinued at this time, catheter in tact and small dressing applied. Patient refused assistance by wheelchair, patient to be escorted from unit to personal auto for significant other to drive home.
--- NOTE | 2018-12-03 01:48 | Discharge Summary ---
ADDENDUM: On 12/01/2018, the nurse did not send the patient home, so the patient actually discharged on 12/02/2018. No changes overnight. Vital signs stable, patient afebrile. Dictated by Laverne Love NP MD CHUY Mercado/MODKori /[id number]
== END 2018-12-02 13:07 | disposition home or self-care (01) | DRG 603 ==
LOC: FSED 01:01 → ERHOLD 01:19 → IMCU 03:30 → OBSVTOIN 13:43
PROVIDERS: ADMIT Internal Medicine; ATTEND Internal Medicine
PROC: 0J990ZX Drainage of Buttock Subcutaneous Tissue and Fascia, Open Approach, Diagnostic (ICD-10-PCS; 2018-11-28)
PROC: 0J9L0ZX Drainage of Right Upper Leg Subcutaneous Tissue and Fascia, Open Approach, Diagnostic (ICD-10-PCS; principal; 2018-11-28 10:28)
DX: L03.116 Cellulitis of left lower limb (principal); L03.115 Cellulitis of right lower limb; E11.9 Type 2 diabetes mellitus without complications; I10 Essential (primary) hypertension; F12.10 Cannabis abuse, uncomplicated; B95.61 Methicillin susceptible Staphylococcus aureus infection as the cause of diseases classified elsewhere; B95.1 Streptococcus, group B, as the cause of diseases classified elsewhere
CPT/HCPCS: 36415; 72193; 80048; 80053; 80202; 82948; 83036; 83735; 83880; 84439; 84443; 85025; 85610; 85730; 87040; 87071; 87075; 87205; 99284; J1815; J1940; J2001; J2270; J2405; J2543; J3370; J3475; J7030; J7040